=== PATIENT | male | born 1965 ===

== ENCOUNTER 2020-01-06 21:00 | Emergency (ER) | payer BC ==
[2020-01-06] MEDS ORDERED: Sodium Chloride 0.9% 10 ML Syringe FLUSH PRN (21:12)
--- NOTE | 2020-01-06 21:17 | EDM.PDOC ---
ED HPI GENERAL MEDICAL PROBLEM - General Chief Complaint: Respiratory Problem Stated Complaint: cough and difficulty breathing Time Seen by Provider: 01/06/20 21:00 Source of Information: Reports: Patient, EMS History Limitations: Reports: No Limitations - History of Present Illness INITIAL COMMENTS - FREE TEXT/NARRATIVE: Patient to the emergency department where he advised he said increasing shortness of breath and coughing with wheezing for the last few days. The patient also advises he has had a fever off and on. The patient does have a history of coronary artery disease and has been having midsternal nonradiating chest pain. He advises that this chest pain he thinks is more related to coughing. The patient denies any ear, nose, or throat symptoms he denies any a bdominal pain he has no nausea no vomiting no diarrhea. The patient does have a more swollen left lower extremity than the right he advised this is normal as the left leg is had multiple surgeries secondary to a fracture. The patient denies any calf pain redness. Onset: Gradual (Symptoms for the past few days worse today.) Quality: Reports: Ache (Neurolyse myalgia) Severity: Moderate Improves with: Reports: None Worsens with: Reports: None Associated Symptoms: Reports: Chest Pain, Cough, Fever/Chills, Shortness of Breath. 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 (see below) (Has been using his MDIs without relief of his symptoms) - Related Data Allergies Allergy/AdvReac Type Severity Reaction Status Date / Time pseudoephedrine Allergy Tachycardia Verified 01/06/20 21:32 [From [facility]] Home Meds: Home Meds Albuterol [Ventolin HFA] 100 mcg INH BID PRN 01/06/20 [History] Budesonide/Formoterol [Symbicort 160-4.5 MCG] 200 mcg INH BID PRN 01/06/20 [History] Ozempic 0.5 mg SQ WEEKLY 01/06/20 [History] ED ROS GENERAL - Review of Systems Review Of Systems: See Below Constitutional: Reports: Fever, Chills, Fatigue HEENT: Denies: Ear Pain, Nose Pain, Throat Pain Respiratory: Reports: Shortness of Breath, Cough, Sputum (White to slight yellow sputum) Cardiovascular: Reports: Chest Pain (Patient advised chest pain is more with coughing, does have a history of coronary artery disease) GI/Abdominal: Reports: No Symptoms. Denies: Abdominal Pain, Diarrhea, Nausea, Vomiting Musculoskeletal: Reports: Muscle Pain (Lysed myalgia) Skin: Reports: No Symptoms Neurological: Denies: Dizziness, Headache Psychiatric: Reports: No Symptoms ED EXAM, GENERAL - Physical Exam Exam: See Below Exam Limited By: No Limitations General Appearance: Alert, WD/WN, Obese Ears: Normal External Exam, Normal Canal, Hearing Grossly Normal, Normal TMs Nose: Normal Inspection, Normal Mucosa Throat/Mouth: Normal Inspection, Normal Lips, Normal Oropharynx, Normal Voice, No Airway Compromise Head: Atraumatic, Normocephalic Neck: Normal Inspection, Supple, Non-Tender, Full Range of Motion. No: Lymphadenopathy (L), Lymphadenopathy (R) Respiratory/Chest: No Respiratory Distress, No Accessory Muscle Use. No: Lungs Clear (Scattered expiratory wheezing and decreased in the bases) Cardiovascular: Normal Peripheral Pulses, Regular Rate, Rhythm, No Murmur Peripheral Pulses: 2+: Radial (L), Radial (R), Posterior Tibial (L), Posterior Tibial (R) GI/Abdominal: Soft, Non-Tender Back Exam: Normal Inspection, Full Range of Motion Extremities: Normal Inspection, Normal Range of Motion, Non-Tender, Normal Capillary Refill Neurological: Alert, Oriented, Normal Cognition, Normal Gait, No Motor/Sensory Deficits Psychiatric: Normal Affect, Normal Mood Skin Exam: Warm, Dry, Intact, Normal Color EKG INTERPRETATION EKG Date: 01/06/20 Time: 21:18 Isabella: RAD-Right Isabella Deviation P-Wave: Present QRS: RBBB QT: Normal EKG Interpretation Comments: Lead EKG shows an underlying sinus rhythm with a ventricular rate of 76 there is a right bundle branch block with a wandering baseline and some nonspecific ST changes. However, there is no obvious injury or ischemia noted. There is no other twelve-lead EKG to compare with. The patient advises he does have a history of coronary artery disease. Course - Vital Signs Text/Narrative:: 2128 the patient has been evaluated in the emergency department chest x-ray is been obtained and is negative, the patient has had lab specimens obtained and are currently being processed. The white count is 13.9 with a normal H&H and platelets as well as a differential. The patient will be given Solu-Medrol 125 mg IV for his wheezing and we will wait on additional treatment until I have all the data back to make a disposition. Twelve-lead EKG shows underlying sinus rhythm with a right bundle branch block no obvious injury or ischemia noted. However, there is a wandering baseline. 2134 patient's COVID test is back and is negative, lactic acid is normal at 1.5. The rest of the labs are still pending. EMS has been advised of the negative cover test. 2139 the patient's general chemistries, CRP, BNP, troponin are all normal. The patient has also been given guaifenesin with codeine 10 mL p.o. 2199 the patient is feeling much better. The patient will be discharged home he will be advised to continue his current medications and the medications as prescribed to him. He is to follow-up with his PCP this week, he is to call in the morning for an appointment time. The patient is to return to the emergency department sooner if worse or any problems. 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 The patient verbalized understanding and agrees. Prescriptions: The patient was given a prescription for: prednisone 50 mg once a day dispense 5 tablets Robitussin with codeine elixir, 1 to 2 teaspoons every 6 hours as needed for cough, dispense 120 mL Last Recorded V/S: Last Vital Signs Temp 36.8 C 01/06/20 21:34 Pulse 84 01/06/20 21:34 Resp 24 H 01/06/20 21:34 BP 162/91 H 01/06/20 21:34 Pulse Ox 95 01/06/20 21:34 - Orders/Labs/Meds Orders: Active Orders 24 hr Category Date Time Status Overnight Pulse Oximetry [RC] Click to Edit Care 01/06/20 21:12 Active CXR [Chest 2V] [CR] Stat Exams 01/06/20 21:11 Taken CULTURE BLOOD [BC] Stat Lab 01/06/20 21:10 Received CULTURE BLOOD [BC] Stat Lab 01/06/20 21:15 Received Codeine/guaiFENesin [Robitussin AC] Med 01/06/20 21:58 Once 10 ml PO ONETIME ONE Codeine/guaiFENesin [Robitussin AC] Med 01/06/20 21:59 Once 10 ml PO ONETIME ONE Sodium Chloride 0.9% [Saline Flush] Med 01/06/20 21:12 Active 10 ml FLUSH ASDIRECTED PRN Blood Culture x2 Reflex Set [OM.PC] Stat Ot 01/06/20 21:11 Ordered Pulse Oximetry Continuous Monitoring [OM.PC] Routine Ot 01/06/20 21:12 Ordered Saline Lock Insert [OM.PC] Routine Ot 01/06/20 21:12 Ordered Medication Orders Sodium Chloride (Saline Flush) 10 ml FLUSH ASDIRECTED PRN PRN Reason: Keep Vein Open Labs: Laboratory Tests 01/06/20 01/06/20 01/06/20 Range/Units 21:10 21:10 21:10 WBC 13.9 H (5.0-10.0) 10^3/uL RBC 5.34 (4.50-6.00) 10^6/uL Hgb 16.1 (14.0-18.0) g/dL Hct 47.0 (40.0-54.0) % MCV 88.0 (82.0-94.0) fL MCH 30.1 (27.0-32.0) pg MCHC 34.3 (33.0-38.0) g/dL RDW Coeff of Jose 12.9 (11.0-15.0) % Plt Count 240 (150-400) 10^3/uL Neut % (Auto) 65.4 (35-85) % Lymph % (Auto) 21.1 (10-55) % [place] % (Auto) 7.3 (0-16) % Eos % (Auto) 5.8 H (0-5) % Baso % (Auto) 0.4 (0-3) % Neut # (Auto) 9.09 H (1.80-7.00) 10^3/uL Lymph # (Auto) 2.92 (1.00-4.80) 10^3/uL [place] # (Auto) 1.01 H (0.00-0.80) 10^3/uL Eos # (Auto) 0.80 H (0.00-0.45) 10^3/uL Baso # (Auto) 0.05 10^3/uL Sodium 143 (136-145) mEq/L Potassium 4.0 (3.5-5.0) mEq/L Chloride 103 (98-106) mEq/L Carbon Dioxide 26 (21-32) mmol/L BUN 9 (7-18) mg/dL Creatinine 0.9 (0.7-1.3) mg/dL Est Cr Clr Drug Dosing 91.65 mL/min Estimated GFR (MDRD) > 60 (>=60) mL/min Glucose 100 H (75-99) mg/dL Lactic Acid 1.5 (0.4-2.0) mmol/L Calcium 8.7 (8.4-10.1) mg/dL Total Bilirubin 1.3 H (0.0-1.0) mg/dL AST 25 (15-37) U/L ALT 33 (12-78) U/L Alkaline Phosphatase 47 (46-116) U/L Troponin I < 0.017 (0.00-0.06) ng/mL C-Reactive Protein < 0.2 L (0.2-0.8) mg/dL NT-Pro-B Natriuret Pep 42 (0-1000) pg/mL Total Protein 7.5 (6.4-8.2) g/dL Albumin 3.9 (3.4-5.0) g/dL SARS CoV-2 RNA Rapid ANTHONY (NEGATIVE) 01/06/20 Range/Units 21:15 WBC (5.0-10.0) 10^3/uL RBC (4.50-6.00) 10^6/uL Hgb (14.0-18.0) g/dL Hct (40.0-54.0) % MCV (82.0-94.0) fL MCH (27.0-32.0) pg MCHC (33.0-38.0) g/dL RDW Coeff of Jose (11.0-15.0) % Plt Count (150-400) 10^3/uL Neut % (Auto) (35-85) % Lymph % (Auto) (10-55) % [place] % (Auto) (0-16) % Eos % (Auto) (0-5) % Baso % (Auto) (0-3) % Neut # (Auto) (1.80-7.00) 10^3/uL Lymph # (Auto) (1.00-4.80) 10^3/uL [place] # (Auto) (0.00-0.80) 10^3/uL Eos # (Auto) (0.00-0.45) 10^3/uL Baso # (Auto) 10^3/uL Sodium (136-145) mEq/L Potassium (3.5-5.0) mEq/L Chloride (98-106) mEq/L Carbon Dioxide (21-32) mmol/L BUN (7-18) mg/dL Creatinine (0.7-1.3) mg/dL Est Cr Clr Drug Dosing mL/min Estimated GFR (MDRD) (>=60) mL/min Glucose (75-99) mg/dL Lactic Acid (0.4-2.0) mmol/L Calcium (8.4-10.1) mg/dL Total Bilirubin (0.0-1.0) mg/dL AST (15-37) U/L ALT (12-78) U/L Alkaline Phosphatase (46-116) U/L Troponin I (0.00-0.06) ng/mL C-Reactive Protein (0.2-0.8) mg/dL NT-Pro-B Natriuret Pep (0-1000) pg/mL Total Protein (6.4-8.2) g/dL Albumin (3.4-5.0) g/dL SARS CoV-2 RNA Rapid ANTHONY Negative (NEGATIVE) Meds: Medications Generic Name Dose Route Start Last Admin Trade Name Freq PRN Reason Stop Dose Admin Sodium Chloride 10 ml 01/06/20 21:12 Saline Flush FLUSH ASDIRECTED PRN Keep Vein Open Discontinued Medications Generic Name Dose Route Start Last Admin Trade Name Freq PRN Reason Stop Dose Admin Guaifenesin/Codeine Phosphate 10 ml 01/06/20 21:39 01/06/20 21:50 Robitussin Ac PO 01/06/20 21:40 10 ml ONETIME ONE Administration Guaifenesin/Codeine Phosphate 10 ml 01/06/20 21:58 Robitussin Ac PO 01/06/20 21:59 ONETIME ONE Guaifenesin/Codeine Phosphate 10 ml 01/06/20 21:59 Robitussin Ac PO 01/06/20 22:00 ONETIME ONE Methylprednisolone Sodium Succinate 125 mg 01/06/20 21:32 01/06/20 21:40 Solu-Medrol IVPUSH 01/06/20 21:33 125 mg ONETIME ONE Administration Departure - Departure Time of Disposition: 22:00 Disposition: Home, Self-Care 01 Condition: Good Clinical Impression: Acute asthma exacerbation - Discharge Information *PRESCRIPTION DRUG MONITORING PROGRAM REVIEWED*: Not Applicable *COPY OF PRESCRIPTION DRUG MONITORING REPORT IN PATIENT JOHN: Not Applicable Instructions: Asthma, Adult Forms: ED Department Discharge Additional Instructions: Increase fluids Prednisone 50 mg once a day for 5 days Use all of your inhalers as prescribed Robitussin with codeine cough syrup 2 teaspoons every 6 hours as needed for cough. DO NOT take this medication while driving as this will cause drowsiness and you can be in an accident Follow-up with your family doctor this week, call tomorrow for an appointment time Return to the emergency department sooner if worse or any problems Sepsis Event Note (ED) - Focused Exam Vital Signs: Vital Signs Temp Pulse Resp BP Pulse Ox 01/06/20 21:34 36.8 C 84 24 H 162/91 H 95 01/06/20 21:12 37.0 C 81 16 161/87 H 97 - Problem List & Annotations (1) Acute asthma exacerbation SNOMED Code(s): 364616664 Code(s): J45.901 - UNSPECIFIED ASTHMA WITH (ACUTE) EXACERBATION Status: Acute Priority: Medium Qualifiers: Asthma persistence: unspecified - Problem List Review Problem List Initiated/Reviewed/Updated: Yes - My Orders Last 24 Hours: My Active Orders 01/06/20 21:10 CULTURE BLOOD [BC] Stat 01/06/20 21:11 CXR [Chest 2V] [CR] Stat Blood Culture x2 Reflex Set [OM.PC] Stat 01/06/20 21:12 Overnight Pulse Oximetry [RC] Click to Edit Sodium Chloride 0.9% [Saline Flush] 10 ml FLUSH ASDIRECTED PRN Pulse Oximetry Continuous Monitoring [OM.PC] Routine Saline Lock Insert [OM.PC] Routine 01/06/20 21:15 CULTURE BLOOD [BC] Stat 01/06/20 21:58 Codeine/guaiFENesin [Robitussin AC] 10 ml PO ONETIME ONE 01/06/20 21:59 Codeine/guaiFENesin [Robitussin AC] 10 ml PO ONETIME ONE - Assessment/Plan Last 24 Hours: My Active Orders 01/06/20 21:10 CULTURE BLOOD [BC] Stat 01/06/20 21:11 CXR [Chest 2V] [CR] Stat Blood Culture x2 Reflex Set [OM.PC] Stat 01/06/20 21:12 Overnight Pulse Oximetry [RC] Click to Edit Sodium Chloride 0.9% [Saline Flush] 10 ml FLUSH ASDIRECTED PRN Pulse Oximetry Continuous Monitoring [OM.PC] Routine Saline Lock Insert [OM.PC] Routine 01/06/20 21:15 CULTURE BLOOD [BC] Stat 01/06/20 21:58 Codeine/guaiFENesin [Robitussin AC] 10 ml PO ONETIME ONE 01/06/20 21:59 Codeine/guaiFENesin [Robitussin AC] 10 ml PO ONETIME ONE Plan: Patient's past medical history, surgical history, social history and past family medical history reviewed see the nursing notes for details
[2020-01-06 21:35] LABS: CHLORIDE,CL 103 mEq/L (98-106); SODIUM,NA 143 mEq/L (136-145)
[2020-01-06] MEDS: methylPREDNISolone Sodium Succinate 125 MG/2 ML SDV IVPUSH ONE (21:40)
[2020-01-06] MEDS: Codeine/guaiFENesin 10-100 MG/5 ML Syrup 5 ML Cup PO ONE ×3 (21:50→22:25)
== END 2020-01-06 22:34 | disposition home or self-care (01) ==
LOC: CC.ED 21:00
DX: J45.901 Unspecified asthma with (acute) exacerbation (principal); Z20.828 Contact with and (suspected) exposure to other viral communicable diseases
CPT/HCPCS: 36415; 71046; 80053; 83605; 83880; 84484; 85025; 86140; 87040; 87635; 93005; 96374; 99285; A9270; J2930; U0002